=== PATIENT | female | born 1970 | race Caucasian/White ===

== ENCOUNTER 2017-09-03 17:09 | Emergency (ER) | payer MEDICAID, OTHER ==
[~2017-09-03] VITALS: Ht 160 cm; Wt 61.4 kg
[2017-09-03 17:18] VITALS: Ht 160 cm; Wt 61.4 kg
[2017-09-03] MEDS ORDERED: KETOROLAC 30 MG INJ IV STA (18:15)
[2017-09-03] MEDS ORDERED: ONDANSETRON 4 MG INJ IV STA (18:15)
[2017-09-03] MEDS ORDERED: ACETAMINOPHEN 500 MG TAB PO STA (18:15)
[2017-09-03] MEDS ORDERED: SOD CHLORIDE 0.9% 1,000 ML IV STA (18:15)
[2017-09-03 18:56] LABS: BASOPHILS % 0.3 % (0.0-2.0); EOSINOPHILS % 0.5 % (0.0-7.0); HEMATOCRIT 32.1 % (37.0-47.0); HEMOGLOBIN 10.6 g/dl (12.0-16.0); LYMPHOCYTES % 29.6 % (15.0-51.0); MEAN CORPUSCULAR HEMOGLOBIN 28.3 pg (29.0-33.0); MEAN CORPUSCULAR VOLUME 85.8 fl (82.0-101.0); MEAN PLATELET VOLUME 10.3 fl (7.4-10.4); MONOCYTE # 0.7 10^3/ul (0.3-0.9); MONOCYTES % 9.8 % (0.0-11.0); NEUTROPHIL # 3.9 10^3/ul (1.6-7.5); NEUTROPHILS % 58.4 % (39.0-77.0); PLATELET COUNT 345 10^3/UL (140-415); RED BLOOD COUNT 3.74 10^6/ul (4.20-5.40); RED CELL DISTRIBUTION WIDTH 14.4 % (11.5-14.5); WHITE BLOOD COUNT 6.6 10^3/ul (4.8-10.8)
[2017-09-03 19:03] LABS: ADD UMIC NO; UR ASCORBIC ACID NEGATIVE (NEGATIVE); UR BILIRUBIN (Dip) NEGATIVE (NEGATIVE); UR BLOOD (Dip) NEGATIVE (NEGATIVE); UR CLARITY CLEAR (CLEAR); UR COLOR YELLOW (YELLOW); UR GLUCOSE (Dip) NEGATIVE (NEGATIVE); UR KETONES (Dip) 1+ mg/dL (NEGATIVE); UR LEUKOCYTE ESTERASE (Dip) NEGATIVE Leu/ul (NEGATIVE); UR NITRITE (Dip) NEGATIVE (NEGATIVE); UR SPECIFIC GRAVITY (Dip) 1.015 (1.003-1.030); UR TOTAL PROTEIN (Dip) NEGATIVE (NEGATIVE); UR UROBILINOGEN (Dip) 1+ mg/dL (NEGATIVE)
[2017-09-03 19:14] LABS: ALBUMIN 4.1 g/dl (3.3-4.9); ALBUMIN/GLOBULIN RATIO 1.2; BILIRUBIN,INDIRECT 0.1 mg/dl (0-1.1); BILIRUBIN,TOTAL 0.1 mg/dl (0.2-1.3); CREATININE 0.59 mg/dl (0.44-1.00); POTASSIUM 3.6 mmol/L (3.5-5.1); TOTAL PROTEIN 7.5 g/dl (6.1-8.1)
--- NOTE | 2017-09-03 19:54 | RADRPT ---
PROCEDURE: XR Chest. CLINICAL INDICATION: cough TECHNIQUE: Single frontal view of the chest was obtained COMPARISON: None FINDINGS: The heart and mediastinum are within normal limits. The lungs are clear. There is no pleural effusion or pneumothorax. The osseous structures are unremarkable. IMPRESSION: 1. No acute cardiopulmonary disease. RPTAT:AAJJ Physician Kwame Date Time Electronically viewed and signed by Marshall Mercer Physician on 09/03/2017 19:54 QL/
[2017-09-03] MEDS ORDERED: ACET325T33 PO (19:59)
[2017-09-03] MEDS ORDERED: IBUP800T25 PO (19:59)
[2017-09-03 20:33] VITALS: BP 133/81; PULSE 86; RESP 18; TEMP 98.7
--- NOTE | 2017-09-03 23:01 | ERD ---
ER Documentation Chief Complaint Chief Complaint Pt with fever, SOB, dizziness and [place] x 9 days. HPI 47-year-old female complaining of fever 9 days with cough. Patient states she took ibuprofen this morning. Denies vomiting. Has body aches and sore throat. Denies abdominal pain. Denies changes in urination or bowel movement. No vomiting. States she has a headache. Medical history of diabetes. NKDA. Surgical history: Denies. Social history: Denies ROS All systems reviewed and are negative except as per history of present illness. Medications Home Meds Active Scripts Acetaminophen* (Tylenol*) 325 Mg Tablet, 2 TAB PO Q6 Y for PAIN AND OR ELEVATED TEMP, #20 TAB Prov:KINGA WEST PA-C 09/03/17 Ibuprofen* (Motrin*) 800 Mg Tab, 800 MG PO Q6, #30 TAB Prov:KINGA WEST PA-C 09/03/17 Allergies Allergies: Coded Allergies: No Known Drug Allergies (Verified Allergy, Unknown, 09/03/17) PMhx/Soc Medical and Surgical Hx: pt denies Surgical Hx History of Surgery: No Anesthesia Reaction: No Hx Neurological Disorder: No Hx Respiratory Disorders: No Hx Cardiac Disorders: No Hx Psychiatric Problems: No Hx Miscellaneous Medical Probl: Yes (DM) Hx Alcohol Use: No Hx Substance Use: No Hx Tobacco Use: No Smoking Status: Never smoker Physical Exam Vitals Vital Signs Date Time Temp Pulse Resp B/P Pulse Ox O2 Delivery O2 Flow Rate FiO2 09/03/17 20:33 98.7 86 18 133/81 99 Room Air 09/03/17 17:18 99.4 100 18 134/70 100 Physical Exam GENERAL: The patient is well-appearing, well-nourished, in no acute distress HEENT: Atraumatic. Conjunctivae are pink. Pupils equal, round, and reactive to light. There is no scleral icterus. Tympanic membranes clear bilaterally. Oropharynx clear. No nystagmus or photophobia. NECK: C-spine is soft and supple. There is no meningismus. There is no cervical lymphadenopathy. CHEST: Clear to auscultation bilaterally. There are no rales, wheezes or rhonchi. HEART: Regular rate and rhythm. No murmurs, clicks, rubs or gallops. No S3 or S4. ABDOMEN:Soft, nontender and nondistended. Good bowel sounds. No rebound or guarding. No gross peritonitis. No gross organomegaly or masses. No Chapin sign or McBurney point tenderness. Result Diagram: 09/03/17184409/03/171844 Results 24 hrs Laboratory Tests Test 09/03/17 18:45 White Blood Count 6.610^3/ul Red Blood Count 3.7410^6/ul Hemoglobin 10.6g/dl Hematocrit 32.1% Mean Corpuscular Volume 85.8fl Mean Corpuscular Hemoglobin 28.3pg Mean Corpuscular Hemoglobin Concent 33.0g/dl Red Cell Distribution Width 14.4% Platelet Count 94088^3/UL Mean Platelet Volume 10.3fl Neutrophils % 58.4% Lymphocytes % 29.6% Monocytes % 9.8% Eosinophils % 0.5% Basophils % 0.3% Nucleated Red Blood Cells % 0.0/100WBC Neutrophils # 3.910^3/ul Lymphocytes # 2.010^3/ul Monocytes # 0.710^3/ul Eosinophils # 0.010^3/ul Basophils # 0.010^3/ul Nucleated Red Blood Cells # 0.010^3/ul Urine Color YELLOW Urine Clarity CLEAR Urine pH 7.0 Urine Specific [place] 1.015 Urine Ketones 1+mg/dL Urine Nitrite NEGATIVEmg/dL Urine Bilirubin NEGATIVEmg/dL Urine Urobilinogen 1+mg/dL Urine Leukocyte Esterase NEGATIVELeu/ul Urine Hemoglobin NEGATIVEmg/dL Urine Glucose NEGATIVEmg/dL Urine Total Protein NEGATIVEmg/dl Sodium Level 141mmol/L Potassium Level 3.6mmol/L Chloride Level 102mmol/L Carbon Dioxide Level 26mmol/L Anion Gap 17 Blood Urea Nitrogen 9mg/dl Creatinine 0.59mg/dl Glucose Level 119mg/dl Lactic Acid Level 1.0mmol/L Calcium Level 9.0mg/dl Total Bilirubin 0.1mg/dl Direct Bilirubin 0.00mg/dl Indirect Bilirubin 0.1mg/dl Aspartate Amino Transf (AST/SGOT) 43IU/L Alanine Aminotransferase (ALT/SGPT) 103IU/L Alkaline Phosphatase 248IU/L Total Protein 7.5g/dl Albumin 4.1g/dl Globulin 3.40g/dl Albumin/Globulin Ratio 1.20 Lipase 223U/L Current Medications Medications (Trade) Dose Ordered Sig/Lindsey Route PRN Reason Start Time Stop Time Status Last Admin Dose Admin Sodium Chloride (NS) 1,000 ml @ 1,000 mls/hr Q1H STAT IV 09/03/17 18:15 09/03/17 19:14 DC 09/03/17 18:55 Ondansetron HCl (Zofran Inj) 4 mg ONCE STAT IV 09/03/17 18:15 09/03/17 18:18 DC 09/03/17 18:55 Ketorolac Tromethamine (Toradol) 30 mg ONCE STAT IV 09/03/17 18:15 09/03/17 18:18 DC 09/03/17 18:54 Acetaminophen (Tylenol Tab) 1,000 mg ONCE STAT PO 09/03/17 18:15 09/03/17 18:18 DC 09/03/17 18:55 Procedures/MDM DIAGNOSTIC IMAGING REPORT Patient: LB MARTEL : 1970 Age: 47 Sex: F MR #: [id number] DOS: 09/03/17 1815 Ordering MD: ALBERTO WEST PA-C Location: [facility] Room/Bed: PROCEDURE: XR Chest. CLINICAL INDICATION: cough TECHNIQUE: Single frontal view of the chest was obtained COMPARISON: None FINDINGS: The heart and mediastinum are within normal limits. The lungs are clear. There is no pleural effusion or pneumothorax. The osseous structures are unremarkable. IMPRESSION: 1. No acute cardiopulmonary disease. ER Course: 1L NS, Toradol, tylenol and zofran given in ED MDM: 47-year-old female complaining of body aches with tactile fevers. I have low suspicion for meningitis or sepsis. I ordered a CT. For the patient however she eloped prior to CT completion. Patient's blood work and vital signs are within normal limits. Exam is non-concerning. Patient is nontoxic- appearing. I have low suspicion for sepsis. Patient's lactic acid is within normal limits. I have low suspicion for pneumonia as patient's breath sounds are within normal limits and x-rays within normal limits. Patient likely has viral URI or flulike symptoms. I do not feel there is indication for antibiotics at this time. Patient is discharged with strict ER precautions and recommended to follow-up with primary care within 1-2 days for close evaluation. Patient is told if symptoms change or worsen to return to the ER immediately. All questions answered however patient did not receive discharge paperwork as she eloped prior to official discharge. Departure Diagnosis: Primary Impression: Flu Condition: Stable Patient Instructions: Influenza (Adult) Referrals: COMMUNITY CLINICS YOU HAVE RECEIVED A MEDICAL SCREENING EXAM AND THE RESULTS INDICATE THAT YOU DO NOT HAVE A CONDITION THAT REQUIRES URGENT TREATMENT IN THE EMERGENCY DEPARTMENT. FURTHER EVALUATION AND TREATMENT OF YOUR CONDITION CAN WAIT UNTIL YOU ARE SEEN IN YOUR DOCTORS OFFICE WITHIN THE NEXT 1-2 DAYS. IT IS YOUR RESPONSIBILITY TO MAKE AN APPOINTMENT FOR FOLOW-UP CARE. IF YOU HAVE A PRIMARY DOCTOR --you should call your primary doctor and schedule an appointment IF YOU DO NOT HAVE A PRIMARY DOCTOR YOU CAN CALL OUR PHYSICIAN REFERRAL HOTLINE AT IF YOU CAN NOT AFFORD TO SEE A PHYSICIAN YOU CAN CHOSE FROM THE FOLLOWING [facility] [address] [facility] [facility] [address] [facility] [email or web address] [address] [facility] [address] [facility] [address] [facility]. [facility]. [address] Additional Instructions: FOLLOW UP WITH YOUR PRIMARY CARE PHYSICIAN TOMORROW.Return to this facility if you are not improving as expected. KINGA WEST PA-C Sep 03, 2017 23:01
== END 2017-09-03 22:03 | disposition left against medical advice (07) ==
LOC: FTE 17:09
DX: J11.1 Influenza due to unidentified influenza virus with other respiratory manifestations (principal); E11.9 Type 2 diabetes mellitus without complications
CPT/HCPCS: 36415; 71010; 80053; 81003; 83605; 83690; 85025; 96374; 96375; J1885; J2405; J7030; Z7502; Z7610